=== PATIENT | male | born 2000 | race Caucasian/White ===

== ENCOUNTER 2019-02-07 18:52 | Emergency (ER) | payer MEDICAID ==
[~2019-02-07] VITALS: Ht 172.7 cm; Wt 69.9 kg
[2019-02-07 19:05] VITALS: BP_SYST 115
--- NOTE | 2019-02-07 21:16 | NUR ---
Patient to ER bed 5 to gown for evaluation. Side rails up. Report given to GRANT LISA.
--- NOTE | 2019-02-07 21:18 | NUR ---
Pt was BIB BLS c/o suicidal ideation. Per EMT, pt is undergoing transition from male to female and was walking down the street with friends, when patient's mother saw her dressed in female clothes and make up. Mother then "flipped out" and patient had verbalized that she wanted to hurt herself by stepping into traffic. Pt is currently sitting in bed stating "I feel safe and do not want my mother in the room yet." Pt states at the moment she does not feel like hurting herself. NO other injuries/complaints per patient or noted.
--- NOTE | 2019-02-07 21:18 | NUR ---
Patient is transitioning from male to female and would like to be addressed as "Milly."
--- NOTE | 2019-02-07 21:19 | NUR ---
Patient placed on suicide precautions. Patient placed in room within close proximity to nurses' station for closer observation and monitoring. All clothing removed, placed in hospital gown. Metal detector wand used to further screen patient of any potential hazardous belongings. All belongings inventoried, placed in bags and removed from room. Cabinets locked. BP and pulse oximeter cords, and cardiac rehabilitation program director leads removed.
--- NOTE | 2019-02-07 21:30 | NUR ---
Pt laying comfortably in bed with no signs of distress
--- NOTE | 2019-02-07 21:45 | NUR ---
PT laying comfortably in bed with no signs of distress
[2019-02-07 21:52] LABS: BILIRUBIN,URINE NEGATIVE (NEGATIVE); BLOOD, URINE NEGATIVE (NEGATIVE); CLARITY/URINE CLEAR (CLEAR); COLOR,URINE YELLOW (YELLOW); GLUCOSE,URINE NEGATIVE (NEGATIVE); KETONES,URINE NEGATIVE (NEGATIVE); LEUKOCYTE ESTERASE ,URINE NEGATIVE (NEGATIVE); NITRITE, URINE NEGATIVE (NEGATIVE); PROTEIN URINE NEGATIVE (NEGATIVE); UROBILINOGEN,URINE 0.2 (0.2-1.0)
--- NOTE | 2019-02-07 22:00 | NUR ---
Pt awake sitting comfortably in bed with no signs of distress
[2019-02-07 22:05] LABS: BARBITURATE, URINE NEGATIVE (NEG <=200); BENZODIAZEPINE, URINE NEGATIVE (NEG <=150); CANNABINOID, URINE NEGATIVE (NEG <=50); COCAINE, URINE NEGATIVE (NEG <=150); METHAMPHETAMINES SCREEN,URINE NEGATIVE (NEG <=500); OPIATE, URINE NEGATIVE (NEG <=100); PHENCYCLIDINE SCREEN,URINE NEGATIVE (NEG <=25); UR TRICYCLIC ANTIDEPRESSANTS NEGATIVE (NEG <=300); URINE AMPHETAMINE NEGATIVE (NEG <=500); URINE METHADONE NEGATIVE (NEG <=200); URINE OXYCODONE SCREEN NEGATIVE (NEG <=100); URINE PROPOXYPHENE SCREEN NEGATIVE (NEG <=300)
--- NOTE | 2019-02-07 22:06 | NUR ---
ER Dr. Mcmahon at bedside examining patient.
[2019-02-07 22:10] LABS: BASOPHILS % (AUTO) 0.3 % (0.0-2.0); EOSINOPHILS % (AUTO) 0.4 % (0.0-4.0); HEMATOCRIT 35.7 % (36-54); HEMOGLOBIN 12.4 g/dL (14.0-18.0); LYMPHOCYTES # (AUTO) 1.9 K/uL (1.0-5.5); LYMPHOCYTES % (AUTO) 20.2 % (20.5-51.5); MEAN CORPUSCULAR HEMOGLOBIN 32 pg (27-31); MEAN CORPUSCULAR HGB CONC 35 % (32-36); MEAN CORPUSCULAR VOLUME 91 fL (79.0-98.0); MONOCYTES # (AUTO) 0.6 K/uL (0.0-1.0); MONOCYTES % (AUTO) 6.8 % (1.7-9.3); NEUTROPHILS # (AUTO) 6.7 K/uL (1.8-7.7); NEUTROPHILS % (AUTO) 72.3 % (40.0-70.0); PLATELET COUNT (AUTO) 201 K/uL (130-430); RED BLOOD CELL COUNT(AUTO) 3.94 MIL/uL (4.2-6.2); RED CELL DISTRIBUTION WIDTH 12.6 % (9.0-15.0); WHITE BLOOD COUNT (AUTO) 9.3 K/uL (4.5-11.0)
--- NOTE | 2019-02-07 22:15 | NUR ---
Dr. Mcmahon at bedside
--- NOTE | 2019-02-07 22:30 | NUR ---
Pt sleeping comfortably in bed with no signs of distress.
[2019-02-07 22:41] LABS: ANION GAP 11 (5-15); CALCIUM 8.7 mg/dL (8.4-11.0); CHLORIDE 103 mmol/L (98-107); CREATININE 0.64 mg/dL (0.55-1.30); GLUCOSE 78 mg/dL (70-99); POTASSIUM 3.4 mmol/L (3.5-5.1); SODIUM SERUM 138 mmol/L (136-145); UREA NITROGEN, BLOOD 6 mg/dL (8-21)
--- NOTE | 2019-02-07 22:45 | NUR ---
Pt sleeping comfortably in bed with no signs of distress.
[2019-02-07 22:46] LABS: ALANINE AMINOTRANSFERASE 15 U/L (12-78); ALBUMIN 3.9 g/dL (3.4-4.8); ASPARTATE AMINOTRANSFERASE 12 U/L (10-37); TOTAL BILIRUBIN 0.6 mg/dL (0.0-1.0)
[2019-02-07 22:50] LABS: GFR AFRICAN AMERICAN 205 mL/min (>90)
--- NOTE | 2019-02-07 23:06 | NUR ---
Patient ambulated to restroom with steady gait.
--- NOTE | 2019-02-07 23:11 | NUR ---
Pt ambulated back to bed with steady gait. Denies complaints at this time
[2019-02-07 23:12] LABS: ACETAMINOPHEN < 1 ug/mL (1-30); ALCOHOL, BLOOD < 3 mg/dL (<10)
[2019-02-07] MEDS ORDERED: ACETAMINOPHEN 325 MG TABLET PO ONE (23:45)
--- NOTE | 2019-02-08 01:14 | NUR ---
PET team at bedside examining patient.
--- NOTE | 2019-02-08 01:35 | NUR ---
Patient placed on 5150 hold. Patient now pending bed placement at [facility] facility
--- NOTE | 2019-02-08 02:20 | NUR ---
patient sleeping comfortably in hospital bed. No acute distress. will continue to monitor.
--- NOTE | 2019-02-08 03:30 | NUR ---
Pt resting comfortably in bed. No acute distress, will continue to monitor. Rise and fall of chest is symmetrical.
--- NOTE | 2019-02-08 03:42 | NUR ---
Pt's packet faxed to the following [facility] contracted LPS facilities: [facility]- [facility]- [facility] Awaiting reply regarding acceptance or rejection.
--- NOTE | 2019-02-08 04:26 | NUR ---
patient sleeping comfortably in hospital bed. No acute distress. will continue to monitor.
--- NOTE | 2019-02-08 05:37 | NUR ---
Pt sleeping comfortably in bed. Rise and fall of chest is symmetrical. No acute distress, will continue to monitor.
--- NOTE | 2019-02-08 06:31 | NUR ---
Patient sleeping comfortably in bed. No acute distress, will continue to monitor.
--- NOTE | 2019-02-08 06:32 | NUR ---
Called Dietary for safety breakfast tray.
--- NOTE | 2019-02-08 07:10 | NUR ---
Report given to SLOAN Tinajero. All care endorsed.
--- NOTE | 2019-02-08 07:30 | NUR ---
Pt sleeping no acute distress noted.
--- NOTE | 2019-02-08 07:54 | NUR ---
FAXED OVER PATIENT INFORMATION TO [facility] AND [facility]
--- NOTE | 2019-02-08 08:20 | NUR ---
Pt given morning tray. Pt ate 100% tolerated well.
--- NOTE | 2019-02-08 09:45 | NUR ---
Pt returned to sleep.
--- NOTE | 2019-02-08 10:30 | NUR ---
FAXED OVER PATIENTS PACKET TO [facility] AND [facility]
[2019-02-08] MEDS ORDERED: SPIRONOLACTONE 25 MG TABLET (ALDACTONE) PO ONE (11:15)
[2019-02-08 13:10] VITALS: BP_SYST 106
--- NOTE | 2019-02-08 13:10 | NUR ---
Patient to be transferred to [facility]. Is being transferred due to higher level of care. Receiving facility has accepting physician and available space. ER physician has signed transfer form. Patient or responsible constitution party has agreed to transfer and signed form. Patient belongings inventoried and will be sent with patient. Copy of nursing notes, lab reports, EKG, Physicians Orders and X-rays to be sent with patient. Report called to Mara at receiving facility. Receiving physician is .
== END 2019-02-08 13:10 ==
LOC: EDBD 18:52 → SED 18:52
DX: F32.9 Major depressive disorder, single episode, unspecified (principal); R45.851 Suicidal ideations; F12.90 Cannabis use, unspecified, uncomplicated
CPT/HCPCS: 36415; 80053; 80307; 81003; 84484; 85025; 99285; G0480; G0481; G0482; 99284